=== PATIENT | male | born 1950 | race Caucasian/White ===

== ENCOUNTER 2017-12-15 09:38 | Emergency (ER) | payer MEDICARE, OTHER ==
[2017-12-15 10:39] LABS: ACETAMINOPHEN 0 ug/mL (10-30)
--- NOTE | 2017-12-15 10:40 | PCM.SN ---
- Free Text/Narrative Note: Lashaun Lemus called in ER. Patient was found hanging by his . Spontaneous agonal breathing noted on arrival. Difficult mask seal noted by respiratory care. Oral airway 100mm inserted, two person mask, good air exchange noted, oral suction for a bloody secretions, RSI medications drawn and given by Pari García CRNA, given. Intubation attempted with glidescope stat 3 8.0 ETT, difficult view, blood in airway , swollen edematous tissues(history of thyroid and neck cancer), tube advanced in direction of air bubbles, esophageal intubation noted. ETT removed. Mask ventilations resumed. Direct Laryngoscopy per Pari García CRNA unable to obtain view, ETT would not advance. Mask ventilations resumed, Glidescope Stat 4 with 7.5 ETT attempted, unable to advance ETT. SunMed Bougie introducer obtained from shoes hand sewer, placed with Glidescope Stat 4, 7.5 ETT advanced over bougie, cuff inflated, positive ETCO2 noted, bilateral breath sounds noted, CXR confirmed proper placement. OG placed and stomach suctioned, placement confirmed with auscultation and CXR.
--- NOTE | 2017-12-15 10:40 | EDM.PDOC ---
ED HPI GENERAL MEDICAL PROBLEM - General Stated Complaint: [facility] Time Seen by Provider: 12/15/17 09:40 - History of Present Illness INITIAL COMMENTS - FREE TEXT/NARRATIVE: Patient seen upon arrival to the emergency department 67-year-old male brought in by EMS initially picked up by an outlying EMS service met by [facility]. The patient had return of spontaneous circulation with good blood pressure and a stable non-tachycardic strong pulse. He was brought to the department in that condition. He was unresponsive. No C- spine immobilization. Patient had a self-induced hanging. He was found bluish color feet on the ground legs flexed. 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 She was not able to check for a pulse. 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 He's had chemoradiation for this his last PET scan 5-1/2 months ago was negative. He is scheduled for recheck in a couple weeks. Review of Systems - Review of Systems Review Of Systems: Unable To Obtain ED EXAM, GENERAL - Physical Exam Exam: See Below Exam Limited By: Other (Unresponsive getting bag mask ventilation) General Appearance: Other (Unresponsive) Eye Exam: Bilateral Eye: Abnormal Pupil (Right pupil is slightly larger than left somewhat constricted both respond to light perhaps a little sluggishly) Ears: Normal External Exam Nose: Normal Inspection Throat/Mouth: Normal Inspection, Perioral Cyanosis (On admission) Head: Atraumatic, Normocephalic Neck: Other (Cord Toñito high up in the neck mild surrounding erythema) Respiratory/Chest: Crackles (Few in the bases), Other (He has spontaneous respirations but is otherwise unresponsive) Cardiovascular: Normal Peripheral Pulses, Regular Rate, Rhythm, No Edema, No Murmur GI/Abdominal: Normal Bowel Sounds, Soft (Male) Exam: Normal Inspection Extremities: Normal Inspection, No Pedal Edema Neurological: Unresponsive Course - Orders/Labs/Meds Orders: Active Orders 24 hr Category Date Time Status Chest 1V Frontal [CR] Routine Exams 12/15/17 10:19 Taken Labs: Laboratory Tests 12/15/17 12/15/17 12/15/17 Range/Units 10:50 10:50 10:50 WBC 11.97 H (4.23-9.07) K/mm3 RBC 5.17 (4.63-6.08) M/mm3 Hgb 15.5 (13.7-17.5) gm/L Hct 49.5 (40.1-51.0) % MCV 95.7 H (79.0-92.2) fl MCH 30.0 (25.7-32.2) pg MCHC 31.3 L (32.2-35.5) g/dl RDW Std Deviation 45.7 H (35.1-43.9) fL Plt Count 308 (163-337) K/mm3 MPV 9.7 (9.4-12.3) fl Neutrophils % (Manual) 73 H (40-60) % Band Neutrophils % 1 (0-10) % Lymphocytes % (Manual) 20 (20-40) % Atypical Lymphs % 0 % Monocytes % (Manual) 4 (2-10) % Eosinophils % (Manual) 2 (0.8-7.0) % Basophils % (Manual) 0 L (0.2-1.2) Platelet Estimate Adequate RBC Morph Comment Normal PT 12.5 H (9.5-12.1) SECONDS INR 1.15 APTT 30 (24-31) SECONDS Sodium 139 (136-145) mEq/L Potassium 4.5 (3.5-5.1) mEq/L Chloride 103 (98-107) mEq/L Carbon Dioxide 29 (21-32) mEq/L Anion Gap 11.5 (5-15) BUN 17 (7-18) mg/dL Creatinine 1.3 (0.7-1.3) mg/dL Est Cr Clr Drug Dosing TNP Estimated GFR (MDRD) 55 (>60) mL/min BUN/Creatinine Ratio 13.1 L (14-18) Glucose 334 H (80-115) mg/dL Calcium 8.7 (8.5-10.1) mg/dL Total Bilirubin 0.3 (0.2-1.0) mg/dL AST 55 H (15-37) U/L ALT 52 (16-63) U/L Alkaline Phosphatase 106 (46-116) U/L Troponin I < 0.017 (0.00-0.056) ng/mL Total Protein 7.6 (6.4-8.2) g/dl Albumin 3.9 (3.4-5.0) g/dl Globulin 3.7 gm/dL Albumin/Globulin Ratio 1.1 (1-2) Amylase 63 (25-115) U/L Salicylates (2.8-20) mg/dL Acetaminophen 0 L (10-30) ug/mL Ethyl Alcohol 0.00 (0.00) gm% / Range/Units 10:50 WBC (4.23-9.07) K/mm3 RBC (4.63-6.08) M/mm3 Hgb (13.7-17.5) gm/L Hct (40.1-51.0) % MCV (79.0-92.2) fl MCH (25.7-32.2) pg MCHC (32.2-35.5) g/dl RDW Std Deviation (35.1-43.9) fL Plt Count (163-337) K/mm3 MPV (9.4-12.3) fl Neutrophils % (Manual) (40-60) % Band Neutrophils % (0-10) % Lymphocytes % (Manual) (20-40) % Atypical Lymphs % % Monocytes % (Manual) (2-10) % Eosinophils % (Manual) (0.8-7.0) % Basophils % (Manual) (0.2-1.2) Platelet Estimate RBC Morph Comment PT (9.5-12.1) SECONDS INR APTT (24-31) SECONDS Sodium (136-145) mEq/L Potassium (3.5-5.1) mEq/L Chloride (98-107) mEq/L Carbon Dioxide (21-32) mEq/L Anion Gap (5-15) BUN (7-18) mg/dL Creatinine (0.7-1.3) mg/dL Est Cr Clr Drug Dosing Estimated GFR (MDRD) (>60) mL/min BUN/Creatinine Ratio (14-18) Glucose (80-115) mg/dL Calcium (8.5-10.1) mg/dL Total Bilirubin (0.2-1.0) mg/dL AST (15-37) U/L ALT (16-63) U/L Alkaline Phosphatase (46-116) U/L Troponin I (0.00-0.056) ng/mL Total Protein (6.4-8.2) g/dl Albumin (3.4-5.0) g/dl Globulin gm/dL Albumin/Globulin Ratio (1-2) Amylase (25-115) U/L Salicylates 3.4 (2.8-20) mg/dL Acetaminophen (10-30) ug/mL Ethyl Alcohol (0.00) gm% - Re-Assessments/Exams Free Text/Narrative Re-Assessment/Exam: 12/15/17 11:27 A she was brought to the emergency room by EMS with spontaneous respirations return of spontaneous circulation after CPR uncertain as to the timing of this referred to EMS notes. Anesthesia was here and attempted intubation in the did achieve intubation after using a malleable bougie there was significant soft tissue deformity secondary to radiation and perhaps edema from hanging. His saturations were in the mid to upper 80s after intubation into the 90s and bag ventilation was easy. Shortly after intubation yet diminished breath sounds on the right the ET tube was withdrawn 1 cm this improved his O2 saturation breath sounds on the right chest x-ray showed 2-3 mm from the marivel to the tip of the ET tube. Patient's blood pressure was stable to hypertensive volume is here the hypertension was thought to be in part due to tracheal manipulation and irritation from intubation efforts. After he was intubated the patient was placed in a c-collar early in the patient's course [facility] was notified. Patient's case was discussed with Dr. Peck ED physician at [facility] in [place] who accepted the patient. The patient was paralyzed with vecuronium started on a fentanyl drip per [facility]. Departure - Departure Time of Disposition: 10:47 Disposition: DC/Tfer to Acute Hospital 02 Condition: Critical Clinical Impression: Hanging, Hypoxia, Unresponsive - Discharge Information Referrals: PCP,None [Primary Care Provider] - Forms: ED Department Discharge Critical Care Note - Critical Care Note Total Time (mins): 69 Comments: Direct care of the patient at the bedside reviewing EKGs x-rays assisting with intubation and discussing the case with the receiving physician - My Orders Last 24 Hours: My Active Orders 12/15/17 10:19 Chest 1V Frontal [CR] Routine - Assessment/Plan Last 24 Hours: My Active Orders 12/15/17 10:19 Chest 1V Frontal [CR] Routine
[2017-12-15] MEDS ORDERED: Etomidate 2 MG/ML 20 ML SDV IVPUSH ONE (10:45)
[2017-12-15] MEDS ORDERED: Succinylcholine 200 MG/10 ML MDV ONE (10:45)
--- NOTE | 2017-12-15 14:50 | CR ---
Chest: Frontal view of the chest was obtained. Comparison: No prior study. Widening of the right paratracheal soft tissues is seen. Endotracheal tube is noted with tip lying at the lower level of clavicles in satisfactory position. Nasogastric tube lies below the gastroesophageal junction within the stomach. Left-sided infusion port is seen. Lungs show no acute parenchymal change. Slight atelectasis or scarring is seen within the left base. Impression: 1. Widening of the right paratracheal soft tissues, etiology not seen on this study. Findings could represent mediastinal hemorrhage as well as adenopathy. 2. Satisfactory position of tubes and catheters as noted above. Diagnostic code #5
== END 2017-12-15 10:47 ==
LOC: JD.ED 09:38
DX: T71.162A Asphyxiation due to hanging, intentional self-harm, initial encounter (principal)
CPT/HCPCS: 31500; 36415; 51702; 71045; 80053; 82150; 84484; 85007; 85027; 85610; 85730; 96361; 96374; 96375; 99291; G0480; J0330; J3490

== ENCOUNTER 2018-08-06 14:55 | Emergency (ER) | payer MEDICARE, OTHER ==
[2018-08-06 16:20] LABS: ACETAMINOPHEN 0 ug/mL (10-30)
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
[2018-08-06] MEDS ORDERED: Levothyroxine 25 MCG Tab PO ONE (16:49)
--- NOTE | 2018-08-06 16:54 | CR ---
Chest: Two views of the chest are obtained. Comparison: Prior chest x-ray of 12/15/17. Heart size is normal. Tortuous thoracic aorta is seen. Diaphragms are slightly flattened raising the possibility of emphysematous change. No acute parenchymal change is seen. Bony structures appear within normal limits for the patient's age. Impression: 1. Probable emphysematous change. Nothing acute is definitely seen. Diagnostic code #2
[2018-08-06] MEDS ORDERED: Levothyroxine 100 MCG Tab PO ONE (17:20)
== END 2018-08-06 18:30 ==
LOC: JD.ED 14:55
DX: F32.9 Major depressive disorder, single episode, unspecified (principal); E03.9 Hypothyroidism, unspecified; F17.210 Nicotine dependence, cigarettes, uncomplicated
CPT/HCPCS: 36415; 71046; 80053; 80306; 84439; 84443; 85025; 99284; A9270; G0480

== ENCOUNTER 2018-08-07 08:41 | Emergency (ER) | payer MEDICARE, OTHER ==
--- NOTE | 2018-08-07 12:12 | CT ---
Head CT Technique: Multiple axial sections through the brain were obtained. Intravenous contrast was not utilized. Comparison: No prior intracranial imaging. Findings: Ventricles along with basal cisterns and sulci over the convexities are within normal limits for the patient's age. No abnormal parenchymal densities are seen. No evidence of intracranial hemorrhage. No midline shift or mass effect is seen. Bone window settings were reviewed which show sinus findings as described on facial CT exam. No acute calvarial abnormality is seen. Impression: 1. No acute intracranial abnormality is identified. Diagnostic code #1
--- NOTE | 2018-08-07 12:50 | CT ---
CT maxillofacial: Multiple axial sections were obtained from above the external auditory canals inferiorly to the lower neck. Intravenous contrast was not utilized. Findings: Mucosal thickening is seen within both maxillary sinuses, worse on the right side. There may be some fluid within the maxillary sinuses. Mild mucosal thickening is seen within portions of the ethmoids and frontal sinuses. Sphenoid sinuses clear. Mastoid sinuses on both side show areas of mucosal thickening. Middle ear cavities are clear. No acute bony abnormality is seen. Incidental degenerative change is seen within the cervical spine. Impression: 1. Mucosal thickening within the maxillary, ethmoid and frontal sinuses. Possible fluid within the maxillary sinuses. Findings most likely represent acute sinusitis. 2. Soft tissue density within both mastoid sinuses either due to retained secretions or mastoiditis. 3. Incidental degenerative change within the cervical spine. Diagnostic code #3
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
[2018-08-07] MEDS ORDERED: Amoxicillin 500 MG Cap PO ONE (13:24)
[2018-08-07] MEDS ORDERED: Levothyroxine 125 MCG Tab PO ONE (13:25)
== END 2018-08-07 14:13 ==
LOC: JD.ED 08:41
DX: F32.9 Major depressive disorder, single episode, unspecified (principal); E03.9 Hypothyroidism, unspecified; F17.210 Nicotine dependence, cigarettes, uncomplicated; J32.9 Chronic sinusitis, unspecified
CPT/HCPCS: 70450; 70486; 99285; A9270